=== PATIENT | female | born 1945 | race Caucasian/White ===

== ENCOUNTER → 2016-08-21 | Outpatient (CLI) | payer OTHER | LOC: SBRMNEURO 20:00 | PROVIDERS: ATTEND Psychiatry & Neurology Sleep Medicine | DX: G47.33 Obstructive sleep apnea (adult) (pediatric) (principal); G47.36 Sleep related hypoventilation in conditions classified elsewhere; G47.61 Periodic limb movement disorder ==

== ENCOUNTER 2016-10-28 10:03 | Observation (INO) | payer OTHER ==
[2016-10-28] MEDS ORDERED: ceFAZolin 2 GM/DEXTROSE 100 ML IV ONE (12:52)
[2016-10-28] MEDS ORDERED: DEXAMETHASONE 10 MG/ML VIAL IVP ONE (12:52)
[2016-10-28] MEDS ORDERED: LR 1,000 ML IV ONE (12:55)
[2016-10-28] MEDS ORDERED: LIDOCAINE 1% 2 ML INJ ID PRN (12:55)
[2016-10-28] MEDS ORDERED: LIDO/EPI 1% **Not for Epidural 20 ML MDV ONE (13:01)
[2016-10-28] MEDS ORDERED: MIDAZOLAM 2 MG/2 ML VIAL IVP ONE (13:53)
--- NOTE | 2016-10-28 13:56 | PDANEPAE ---
ANE Past Medical History - Cardiovascular History Hx Hypertension: Yes Hx Arrhythmias: No Hx Chest Pain: No Hx Coronary Artery / Peripheral Vascular Disease: No Hx CHF / Valvular Disease: No Hx Palpitations: No Cardiovascular History Comment: [phone] [facility] [address] Lily CASTELLANO. PFO CLOSURE 06/2016 [facility]. RT CAROTID ARTERY SURG 04/2016 - Pulmonary History Hx COPD: No Hx Asthma/Reactive Airway Disease: No Hx Recent Upper Respiratory Infection: No Hx Oxygen in Use at Home: No Hx Sleep Apnea: Yes Sleep Apnea Screening Result - Last Documented: Positive Pulmonary History Comment: BIMAL USES C-PAP. PE 10/2015 - Neurologic History Hx Cerebrovascular Accident: No Hx Seizures: No Hx Dementia: No Neurologic History Comment: TIA 2004 - Endocrine History Hx Diabetes: No Hypothyroid: No Obesity: mild, moderate - Renal History Hx Renal Disorders: No - Liver History Hx Hepatic Disorders: No - Neurological & Psychiatric Hx Hx Neurological and Psychiatric Disorders: No - Cancer History Hx Cancer: No - Congenital Disorder History Hx Congenital Disorders: No - GI History GERD: moderate Hx Gastrointestinal Disorders: Yes Gastrointestinal History Comment: REFLUX - Other Health History Other Health History: CONCUSSION/BRAIN BLEED 10/2012. FELL 10/04/2016 INJURING FX LT ORBIT - Chronic Pain History Chronic Pain: No - Surgical History Prior Surgeries: PFO CLOSURE 06/2016 AT [facility]. REMVL RT CAROTID ARTERY TUMOR 04/2016. REMVL BONE UNDER TONGUE 10/2015. TONSILLECTOMY. HYSTERECTOMY. PARTIAL THYROIDECTOMY. ESTEFANI. LT TOTAL KNEE ANE Review of Systems - Exercise capacity METS (RN): 4 METS - Systems EENMT: Reports: eye pain, other (chipped incisor left side) ANE Patient History - Allergies Allergies/Adverse Reactions: No Known Allergies Allergy (Verified 10/28/16 13:51) - Home Medications Home Medications: Acetaminophen [Tylenol 325mg (*)] 650 mg PO HS 10/23/16 [Last Taken Unknown] Aspirin [Aspirin 81mg (*)] 81 mg PO HS 10/23/16 [Last Taken 10/18/16] Atorvastatin Calcium [Lipitor 20 mg (*)] 20 mg PO HS 10/23/16 [Last Taken Unknown] Cholecalciferol Vit D3 [Vitamin D3 2000 units tab (OTC)] 5,000 units PO DAILY [Last Taken Unknown] Docusate Sodium [Colace 100 MG (*)] 100 mg PO DAILY 10/23/16 [Last Taken Unknown ] Lisinopril [Zestril 20 mg (*)] 20 mg PO BID 10/23/16 [Last Taken Unknown] Metoprolol Tartrate [Lopressor 25 mg (*)] 25 mg PO BID 10/23/16 [Last Taken Unknown] Pantoprazole Sodium [Protonix 40mg (*)] 40 mg PO DAILY 10/23/16 [Last Taken Unknown] Propylene Glycol [Systane Balance] 1 drop OP PRN PRN 10/23/16 [Last Taken Unknown] Sennosides [Senokot] 8.6 mg PO DAILY 10/23/16 [Last Taken Unknown] Valacyclovir HCl [Valacyclovir] 500 mg PO DAILY 10/23/16 [Last Taken Unknown] oxyCODONE IR [Oxycodone Ir (*)] 5 mg PO HS 10/23/16 [Last Taken Unknown] Clopidogrel Bisulfate [Plavix (*)] 75 mg PO DAILY 10/27/16 [Last Taken Unknown] - NPO status NPO Since - Liquids (Date): 10/28/16 NPO Since - Liquids (Time): 09:30 NPO Since - Solids (Date): 10/27/16 NPO Since - Solids (Time): 22:00 - Smoking Hx Smoking Status: Former smoker ANE Labs/Vital Signs - Vital Signs Blood Pressure: 196/106 Heart Rate: 72 Respiratory Rate: 16 O2 Sat (%): 92 Height: 162.56 cm Weight: 81.647 kg ANE Physical Exam - Airway Neck exam: FROM Mallampati Score: Class 2 Mouth exam: normal dental/mouth exam - Pulmonary Pulmonary: no respiratory distress - Cardiovascular Cardiovascular: regular rate and rhythym - ASA Status ASA Status: II ANE Anesthesia Plan Anesthesia Plan: general endotracheal anesthesia
[2016-10-28] MEDS ORDERED: MIDAZOLAM 2 MG/2 ML VIAL ONE (13:59)
--- NOTE | 2016-10-28 14:34 | PDHPUP ---
History & Physical Update H&P update statement: This history and physical update is based on an assessment of the patient which was completed after admission or registration (within 24 hours), but prior to the surgery/procedure. H&P update: no change in patient's condition since H&P completed (PATIENT HAS SEEN DR TRISTON MCBRIDE CLEARANCE DONE)
[2016-10-28] MEDS ORDERED: PROPOFOL/EMULSION 500 MG/50 ML BOTTLE IV ONE (14:53)
[2016-10-28] MEDS ORDERED: fentaNYL 100 MCG/2 ML INJ ONE ×4 (14:56→17:46)
[2016-10-28] MEDS ORDERED: BALANCED SALT IRRIG SOLN 15 ML OPHT.BTL ONE ×2 (15:05→15:31)
[2016-10-28] MEDS ORDERED: LIDOCAINE 2% 5 ML SDV ONE (15:23)
[2016-10-28] MEDS ORDERED: ROCURONIUM 50 MG/5 ML VIAL ONE (15:23)
[2016-10-28] MEDS ORDERED: ONDANSETRON 4 MG/2 ML VIAL ONE (15:23)
[2016-10-28] MEDS ORDERED: morphINE *ANESTHESIA ONLY* 10 MG/ML VIAL ONE (15:45)
[2016-10-28] MEDS ORDERED: epHEDrine SULFATE 10 MG/ML SYR ONE (16:40)
[2016-10-28] MEDS ORDERED: ONDANSETRON 4 MG/2 ML VIAL IVP PRN (16:45)
--- NOTE | 2016-10-28 16:52 | POSTOPPROG ---
Post Op Note Date of Operation: 10/28/16 Surgeon: Yue Robbins [employer] Operator: none Anesthesia: GET(General Endotracheal) Pre-op Diagnosis: left orbital floor fracture Post-op Diagnosis: same Procedure: repair left orbital floor fracture Findings: large medial to posterior floor fracture Inf/Abcess present in the surg proc area at time of surgery?: No Depth: Deep Incisional (Fascial) EBL: Minimal Total fluids administered: 1200
[2016-10-28] MEDS ORDERED: PROMETHAZINE HCL 25 MG/ML INJ IVP PRN (17:09)
[2016-10-28] MEDS ORDERED: LABETALOL HCL 50 MG/10 ML SYR IVP PRN (17:09)
[2016-10-28] MEDS ORDERED: NALOXONE HCL 0.4 MG/ML INJ IVP PRN (17:09)
[2016-10-28] MEDS ORDERED: fentaNYL 100 MCG/2 ML INJ IVP PRN (17:09)
[2016-10-28] MEDS ORDERED: hydrALAZINE 20 MG/ML VIAL IVP PRN (17:16)
--- NOTE | 2016-10-28 17:21 | POSTANESTH ---
Post Anesthetic Evaluation Cardiovascular Status: Similar to Pre-Op Cond Respiratory Status: Similar to Pre-op Cond. Level of Consciousness/Mental Status: Can Participate in Eval, Moderately Sleepy Pain Control: Adequate, Prn Tx Ordered Nausea/Vomiting Control: Adequate, Prn Tx Ordered Complications Possibly Related to Anesthesia: None Noted
[2016-10-28] MEDS ORDERED: LABETALOL HCL 5 MG/ML 20 ML MDV ONE (17:30)
[2016-10-28] MEDS ORDERED: hydrALAZINE 20 MG/ML VIAL ONE (17:30)
[2016-10-28] MEDS: fentaNYL 100 MCG/2 ML INJ IVP PRN ×3 (17:33→18:00)
[2016-10-28] MEDS ORDERED: ACETAMINOPHEN 325 MG TAB PO SCH (21:00)
[2016-10-28] MEDS ORDERED: ATORVASTATIN CALCIUM 20 MG TAB PO SCH (21:00)
[2016-10-28] MEDS ORDERED: oxyCODONE IR 5 MG TAB PO SCH (21:00)
[2016-10-28] MEDS: LISINOPRIL 20 MG TAB PO SCH (21:05)
[2016-10-28] MEDS: METOPROLOL TARTRATE 25 MG TAB PO SCH (21:06)
[2016-10-28] MEDS: ERYTHROMYCIN 0.5% 1 GM OPHT.OINT LEFTEYE SCH (21:07)
[2016-10-29 00:14] VITALS: RESP 18
--- NOTE | 2016-10-29 07:01 | GOP ---
[f rep st] OPERATIVE REPORT DATE OF OPERATION: 10/28/2016 SURGEON: Yue Robbins MD COMMISSIONS ANALYST: None. ANESTHESIA: General endotracheal. PREOPERATIVE DIAGNOSIS: Left orbital floor fracture. POSTOPERATIVE DIAGNOSIS: Left orbital floor fracture. PROCEDURE PERFORMED: Repair of left orbital floor fracture with implant. FINDINGS: 1. Large, greater than 50% orbital floor fracture, located primarily medially and mid to posterior including orbital fat entrapment. 1. Use of Synthes thin implantable titanium orbital floor implant for fracture repair and two 4 mm screws into the orbital rim. 2. SPECIMENS: None. ESTIMATED BLOOD LOSS: Minimal. INDICATIONS: The patient is a 70-year-old female, who sustained a mechanical fall 2 weeks prior. [place] at the [facility] demonstrated a large orbital floor fracture and on physical exam ination in my office she demonstrated diplopia as well as gaze restriction in the upward gaze only. Preoperative examination with confirmed this with no other orbital injuries. Risks, benefits and alternatives of the above procedures were discussed and it was decided to proceed forw marzena. DESCRIPTION OF PROCEDURE: The patient was met in preoperative holding, and informed consent was con firmed. The left eye was marked and the patient confirmed this as well. She was brought to the OR, and she underwent induction of general anesthesia and placement of endotracheal tube without diffic ulty. She was rotated 90 degrees by the operating surgeon. A time-out was performed. 1 cc of 1% l idocaine with 1:100,000 epinephrine was infiltrated throughout the planned conjunctival incision as well as the lateral canthus in the event that canthotomy was required. She was then widely prepped and draped with diluted Betadine and corneal camacho were applied. I began by retracting with Desma rres retractor the lower lid and using gentle pressure on the orbit with a malleable retractor, a story bconjunctival incision using the Wise tip needle was made in a post tarsal plane down to the per iorbital rim. The rim was completely intact. The periorbital fat was then retracted using the mall eable as well as a [place] elevator and the fracture was identified. This was somewhat medial to the orbital floor. There was significant scarring as well as orbital fat entrapment. All this was redu yasmin through careful dissection using a number of elevators including Freers and suction Freers. Onc e the contents were completely reduced, the fracture size was assessed and a thin implantable Mid[employer] e Synthes orbital floor implant was trimmed, preserving 2 flanges to wrap around the orbital rim. T his was inserted with all the contents being retracted superiorly and away from the fracture line an d then molded to be as close to the natural orbital floor as possible. The plate was then fixated t o the rim using 2 single self-tapping screws measuring 4 mm. At this point a forced duction test wa s performed. There appeared to be good mobility of the orbit and superior motion. The conjunctival incision was then closed with 5-0 Monocryl and the scleral camacho were all removed and the eye was irrigated with BSS and then erythromycin eye ointment was applied. At this point, the patient was then turned back to Anesthesia for wake up. At the end of this procedure all sponge and instrument counts were correct. I personally performed all portions of the case. FLUIDS: 1200 cc of crystalloid. /[id number]/MODL
--- NOTE | 2016-10-29 07:29 | SOAPPROG ---
SOAP Progress Note Assessment/Plan: Assessment: POD 1 s/p left orbital fx repair reports no change to baseline vision, still has some gaze restriction, hopefully due to edema in superior gaze Globe is soft, some scleral edema as expected Plan: d/c home today, f/u next wednesday in clinic 10/29/16 07:26 Subjective: patient feels good, minimal pain Objective: Vital Signs Temp Pulse Resp BP Pulse Ox 37.4 C 96 18 131/80 H 92 10/29/16 04:44 10/29/16 04:44 10/29/16 04:44 10/29/16 04:44 10/29/16 04:44 10/28/16 10/29/16 10/30/16 05:59 05:59 05:59 Intake Total 900 Balance 900 globe soft, PERRL. some scleral edema. Still has some gaze restriction upward with end gaze diploplia - Pending Discharge Pending Discharge Within 24 Hours: Yes Pending Discharge Date: 10/30/16 Pending Discharge Time: 11:00 ICD10 Worksheet Patient Problems: Problems Problem Status Onset Orbit fracture, left Acute - ICD10 Problem Qualifiers (1) Orbit fracture, left Qualifiers: Encounter type: subsequent encounter Fracture type: F Fracture healing: with routine healing Qualified Code(s): S02.82XD - Fracture of other specified skull and facial bones, left side, subsequent encounter for fracture with routine healing
[2016-10-29 07:45] VITALS: BP 133/81; TEMP 97.7
[2016-10-29] MEDS: METOPROLOL TARTRATE 25 MG TAB PO SCH (08:11)
[2016-10-29] MEDS: LISINOPRIL 20 MG TAB PO SCH (08:11)
[2016-10-29] MEDS: ERYTHROMYCIN 0.5% 1 GM OPHT.OINT LEFTEYE SCH (08:13)
[2016-10-29 08:18] VITALS: PULSE 91
[2016-10-29] MEDS ORDERED: PANTOPRAZOLE SODIUM 40 MG TAB PO SCH (09:00)
[2016-10-29] MEDS ORDERED: SENNOSIDES 1 TAB PO SCH (09:00)
[2016-10-29] MEDS ORDERED: DOCUSATE SODIUM 100 MG CAP PO SCH (09:00)
[2016-10-29] MEDS ORDERED: CHOLECALCIFEROL VIT D3 2,000 UNITS TAB/CAP PO SCH (09:00)
[2016-10-29 09:29] VITALS: O2SAT 91
== END 2016-10-29 10:10 | disposition home or self-care (01) ==
LOC: F3N 12:41 → F3E 18:27
PROVIDERS: ADMIT Otolaryngology; ATTEND Otolaryngology
PROC: 0NSQ04Z Reposition Left Orbit with Internal Fixation Device, Open Approach (ICD-10-PCS; principal; 2016-10-28 14:00)
DX: S02.32XA Fracture of orbital floor, left side, initial encounter for closed fracture (principal); W01.0XXA Fall on same level from slipping, tripping and stumbling without subsequent striking against object, initial encounter; Y92.89 Other specified places as the place of occurrence of the external cause; Y99.8 Other external cause status; I77.9 Disorder of arteries and arterioles, unspecified; I10 Essential (primary) hypertension; D68.9 Coagulation defect, unspecified; Q21.1 Atrial septal defect; G47.33 Obstructive sleep apnea (adult) (pediatric); Z87.891 Personal history of nicotine dependence; Z86.73 Personal history of transient ischemic attack (TIA), and cerebral infarction without residual deficits; Z82.49 Family history of ischemic heart disease and other diseases of the circulatory system; Z96.652 Presence of left artificial knee joint; Z79.82 Long term (current) use of aspirin
CPT/HCPCS: 21390; C1713; J0690; J1100; J2250; J2405; J2704; J3010; J0360; J3490